=== PATIENT | male | born 1990 | race Hispanic/Latino ===

== ENCOUNTER 2016-12-02 23:08 | Emergency (ER) | payer OTHER ==
[2016-12-02 23:30] VITALS: BP 132/81; PULSE 74; RESP 18; TEMP 98.4; O2SAT 97
[2016-12-02 23:31] VITALS: BMI 19.5
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
== END 2016-12-03 00:21 | disposition home or self-care (01) ==
LOC: ED 23:08
DX: S09.90XA Unspecified injury of head, initial encounter (principal); V43.52XA Car driver injured in collision with other type car in traffic accident, initial encounter; Y92.410 Unspecified street and highway as the place of occurrence of the external cause

== ENCOUNTER 2017-11-22 20:59 | Emergency (ER) | payer SELFPAY ==
[2017-11-22 21:00] VITALS: BMI 19.5
[2017-11-22 21:10] VITALS: TEMP 98.6
--- NOTE | 2017-11-22 21:27 | ED PDOC ---
Arrival/HPI - General Historian: Patient - History of Present Illness Narrative History of Present Illness (Text): 11/22/17 21:20 27 y/o male, no significant pmh, nkda, last tetanus under 4 years ago, c/o rt. shoulder pain x 3 days. Pt. was walking down the stair, didn't see the gate, fall and landed on the rt. shoulder, no head/neck/back/chest/extremity injury, no palpitation, no night sweat, no rash, no dizziness, no change in vision, no other medical or psychological complaints. <Natanael Chung - Last Filed: 11/22/17 22:29> <Naveed Haas - Last Filed: 11/23/17 05:42> - General Chief Complaint: Upper Extremity Problem/Injury Time Seen by Provider: 11/22/17 21:20 Past Medical History - Provider Review Nursing Documentation Reviewed: Yes - Psychiatric Hx Psychophysiologic Disorder: No Hx Substance Use: No <Natanael Chung - Last Filed: 11/22/17 22:29> Family/Social History - Physician Review Nursing Documentation Reviewed: Yes Family/Social History: Unknown Family HX Smoking Status: Light Smoker < 10 Cigarettes Daily Hx Alcohol Use: Yes Frequency of alcohol use: Socially Hx Substance Use: No <Natanael Chung - Last Filed: 11/22/17 22:29> Allergies/Home Meds <Nataneal Chung - Last Filed: 11/22/17 22:29> <Naveed Haas - Last Filed: 11/23/17 05:42> Allergies/Adverse Reactions: Allergies No Known Allergies Allergy (Unverified 11/22/17 21:02) Review of Systems - Review of Systems Constitutional: absent: Fatigue, Fevers Eyes: absent: Vision Changes ENT: absent: Hearing Changes Respiratory: absent: SOB, Cough Cardiovascular: absent: Chest Pain Gastrointestinal: absent: Abdominal Pain, Nausea, Vomiting Musculoskeletal: Arthralgias. absent: Back Pain, Neck Pain, Joint Swelling, Myalgias Skin: absent: Rash, Pruritis, Skin Lesions Neurological: absent: Headache Psychiatric: absent: Anxiety, Depression, Suicidal Ideation <Natanael Chung - Last Filed: 11/22/17 22:29> Physical Exam Vital Signs Reviewed: Yes Vital Signs Temp Pulse Resp BP Pulse Ox 11/22/17 21:02 98.6 F 89 15 133/87 98 Temperature: Afebrile Blood Pressure: Normal Pulse: Regular Respiratory Rate: Normal Appearance: Positive for: Well-Appearing, Non-Toxic, Comfortable Pain Distress: Moderate Mental Status: Positive for: Alert and Oriented X 3 - Systems Exam Head: Present: Atraumatic, Normocephalic, Other (no facial bony tenderness or swelling. ). No: Tenderness, Contusion, Swelling, Ecchymosis, Abrasion, Laceration Pupils: Present: PERRL Extroacular Muscles: Present: EOMI Conjunctiva: Present: Normal Mouth: Present: Moist Mucous Membranes Pharnyx: No: ERYTHEMA, EXUDATE, TONSILS ENLARGED Nose (External): Present: Atraumatic. No: Abrasion, Contusion, Laceration Nose (Internal): Present: Normal Inspection, No Active Bleeding. No: Rhinorrhea, Septal Hematoma, Epistaxis Neck: Present: Normal Range of Motion, Trachea Midline. No: Meningeal Signs, MIDLINE TENDERNESS, Paraspinal Tenderness, Lymphadenopathy Respiratory/Chest: Present: Clear to Auscultation, Good Air Exchange. No: Respiratory Distress, Accessory Muscle Use Cardiovascular: Present: Regular Rate and Rhythm, Normal S1, S2. No: Murmurs Abdomen: No: Tenderness, Distention, Peritoneal Signs, Rebound, Guarding Back: Present: Normal Inspection Upper Extremity: Present: Normal Inspection, NORMAL PULSES, Neurovascularly Intact, Capillary Refill < 2s, Other (Rt. shoulder: +ttp and mild swelling on the shoulder, no cellulitis or ulcer, no elbow/wrist/finger tenderness/swelling, FROM without limitation but painful moving the rt. shoulder, sensation intact, motor 5/5, +radial pulse, capillary refill< 2 seconds, neurovascular intact. ). No: Cyanosis, Edema Lower Extremity: Present: Normal Inspection. No: Edema Neurological: Present: GCS=15, CN II-XII Intact, Speech Normal Skin: Present: Warm, Dry, Normal Color. No: Rashes Psychiatric: Present: Alert, Oriented x 3, Normal Insight, Normal Concentration <Natanael Chung - Last Filed: 11/22/17 22:29> Vital Signs Temp Pulse Resp BP Pulse Ox 11/22/17 22:25 84 16 128/76 99 11/22/17 21:02 98.6 F 89 15 133/87 98 <Naveed Haas - Last Filed: 11/23/17 05:42> Medical Decision Making ED Course and Treatment: 11/22/17 21:30 -Rt. shoulder xray -Motrin -Observe and reassess 11/22/17 22:29 -Rt. shoulder xray show +clavicle fracture. -Sling ordered -All results discussed with the patient. -Pain decreased -Discharge home with sling, motrin, ice compression, rest, follow up with your own pmd and orthopedic within 2 days, return to the ER for any new or worsening signs or symptoms. <Natanael Chung - Last Filed: 11/22/17 22:29> - RAD Interpretation Radiology Orders: 11/22/17 21:27 SHOULDER RIGHT [RAD] Stat - Medication Orders Current Medication Orders: Discontinued Medications Ibuprofen (Motrin Tab) 600 mg PO STAT STA Stop: 11/22/17 21:28 Last Admin: 11/22/17 21:38 Dose: 600 mg MAR Pain/Vitals Document 11/22/17 21:38 JOL (Rec: 11/22/17 21:38 JOL [id number]) Pain Reassessment Is This A Pain ReAssessment? No Sleep Is patient sleeping during reassessment? No Presence of Pain Presence of Pain Yes Pain Scale Used Protocol: PSCALES Pain Scale Used Numeric Location Left, Right or Bilateral Right Pain Location Body Site Arm Intensity 6 Scale Used Numeric Pain Behavior Restlessness Facial Grimacing <Naveed Haas - Last Filed: 11/23/17 05:42> - PA / KILN SETTER / Resident Statement MD/DO has reviewed & agrees with the documentation as recorded. <Natanael Chung - Last Filed: 11/22/17 22:29> Disposition/Present on Arrival - Present on Arrival Any Indicators Present on Arrival: No History of DVT/PE: No History of Uncontrolled Diabetes: No Urinary Catheter: No History of Decub. Ulcer: No History Surgical Site Infection Following: None - Disposition Have Diagnosis and Disposition been Completed?: Yes Disposition Time: 22:30 Patient Plan: Discharge <Natanael Chung - Last Filed: 11/22/17 22:29> - Present on Arrival Any Indicators Present on Arrival: No - Disposition Have Diagnosis and Disposition been Completed?: Yes <Naveed Haas - Last Filed: 11/23/17 05:42> - Disposition Diagnosis: Clavicle fracture Disposition: HOME/ ROUTINE Condition: GOOD Additional Instructions: -Discharge home with sling, motrin, ice compression, rest, follow up with your own pmd and orthopedic within 2 days, return to the ER for any new or worsening signs or symptoms. Prescriptions: Ibuprofen [Motrin] 600 mg PO QID PRN #30 tab PRN Reason: Other Referrals: Arnaldo Dockery MD [Staff Provider] - Follow up with primary Forms: [facility] ([place]), WORK NOTE
[2017-11-22 23:37] VITALS: BP 128/76; PULSE 84; RESP 16; O2SAT 99
--- NOTE | 2017-11-23 08:45 | RAD ---
Date of service: 11/22/2017 PROCEDURE: Radiographs of the Right Shoulder HISTORY: rt. shoulder injury s/p fall COMPARISON: No prior. FINDINGS: BONES: Fracture distal clavicle. JOINTS: Normal. Glenohumeral and acromioclavicular joints preserved. No osteoarthritis. SOFT TISSUES: Normal. OTHER FINDINGS: None. IMPRESSION: Acute fracture of the distal right clavicle. Concordant results with the preliminary interpretation rendered by the emergency department physician procedure.
== END 2017-11-22 22:25 | disposition home or self-care (01) ==
LOC: ED 20:59
DX: S42.031A Displaced fracture of lateral end of right clavicle, initial encounter for closed fracture (principal); W20.8XXA Other cause of strike by thrown, projected or falling object, initial encounter; F17.210 Nicotine dependence, cigarettes, uncomplicated